=== PATIENT | male | born 1940 | race Caucasian/White ===

== ENCOUNTER 2017-02-06 13:12 | Inpatient (IN) | payer MEDICARE ==
[~2017-02-06] VITALS: Ht 175.2 cm; Wt 78.9 kg
--- NOTE | ~2017-02-06 | O ---
[place], [place] OPERATIVE NOTE NAME: ASHLEY BEAN UNIT #: [id number] ROOM: 410 DOCTOR: MIGUEL BLEVINS MD BIRTHDATE: [birth year] DOS: INDICATION: This is a 76-year-old patient who presented with chief complaint of anemia, blood in stool, status post transfusion. PROCEDURE: Today's procedure part of investigation is colonoscopy. PREMEDICATION: Versed and Diprivan. SCOPE: Olympus folding colonoscope 10L video. REPORT: After putting the patient in left lateral position and application of lubricant to rectal pouch and digital examination, the scope was encountering immediately with a dark black screen due to the presence of old blood and stool debris. As much as possible lavage was done under high pressure; however, detailed visualization absolutely impractical. We had to abort the procedure due to the ambiguity of anatomy secondary to retained stool and debris. The patient extubated, tolerated procedure well. IMPRESSION: Retained stool and nonvisualization of the colon. PLAN AND DISCUSSION: We are going to feed the patient, and if he has to be discharged, we can proceed with that order and outpatient colonoscopy with 2 days prep is going to be organized for him in future. MIGUEL BLEVINS MD CM:OPRECORD:OPERATIVE NOTE [id number] MIGUEL BLEVINS MD 02/09/17 1739 interface
--- NOTE | ~2017-02-06 | O ---
[place], [place] OPERATIVE NOTE NAME: [facility]AN [id number] UNIT #: [id number] ROOM: 415 DOCTOR: FELICITY SIMONMIGUEL BIRTHDATE: [birth year] DOS: 02/07/2017 HISTORY OF ILLNESS: The patient has presented with sudden drop in H and H, and concerned about acute internal bleed and his initial H and H was 7.2 and 21, it dropped to 5.8 and 17. I was asked for assessment of the patient. The patient's platelets also was 87, thrombocytopenic and the platelet count has essentially stayed the same neighborhood. Lactic acid was 3.3. His INR was 1.1. Comprehensive metabolic panel: BUN and creatinine 62 and 2.[address] scan of the head was no acute intracranial pathology, moderate atrophy of chronic small vessel disease noticed. Lactic acid remains about 3.3 continuously. His INR, the same comprehensive metabolic panel with slight improvement in BUN and creatinine to 50 and 1.7 was noticed. His troponin was negative. PAST MEDICAL HISTORY: Hyperlipidemia, hypertension, diabetes, chronic renal failure and hypertension. PAST SURGICAL HISTORY: Cardiac pacemaker, adenoidectomy, cardiac stent x 1, pacemaker, appendectomy and penile implant. SOCIAL HISTORY: Passive smoker. Nonalcohol consumer. FAMILY HISTORY: Noncontributory. ALLERGIES: No known. MEDICATION: Medication list has been reviewed. REVIEW OF SYSTEMS: HEENT: Denies double vision, blurred vision. RESPIRATORY: Denies shortness of breath. CARDIOVASCULAR: Denies chest pain. DIGESTIVE SYSTEM: Some nausea, no hematemesis, no hematochezia. PHYSICAL EXAMINATION: VITAL SIGNS: Stable. HEENT: Head normocephalic, nontraumatic. Mouth and buccal mucosa benign. NECK: Supple. No thyromegaly, no cervical lymphadenopathy. CHEST: Symmetric anatomy, equal expansion. No wheeze, no rhonchi. Decreased air entry in general. HEART: Normal sinus rhythm, no gallop, no murmur. ABDOMEN: Soft. No palpable organomegaly. Bowel sounds present. No pulsatile mass. EXTREMITIES: No cyanosis, no pedal edema. NEUROLOGICAL: Alert, oriented to time, place, person. IMPRESSION: Acute drop in hemoglobin and hematocrit, anemia, renal insufficiency, lactic acidosis, hypertension, hyperlipidemia and diabetes mellitus; all has been recognized. [place], [place] OPERATIVE NOTE NAME: ASHLEY BEAN UNIT #: [id number] ROOM: 415 DOCTOR: FELICITY SIMON,MIGUEL BIRTHDATE: [birth year] PLAN AND DISCUSSION: EGD and clinical reassessment. MIGUEL BLEVINS MD CM:OPRECORD:OPERATIVE NOTE [id number] MIGUEL BLEVINS MD 02/07/17 1305 interface
--- NOTE | ~2017-02-06 | O ---
[place], [place] OPERATIVE NOTE NAME: ASHLEY BEAN UNIT #: [id number] ROOM: 415 DOCTOR: FELICITY SIMON,MIGUEL BIRTHDATE: [birth year] DOS: HISTORY OF PRESENT ILLNESS: This is a 76-year-old patient who presented with sudden drop in H and H of 5 and 17 and there is concern of the source of the possible GI bleed, the source of blood loss. PROCEDURE: Today's procedure part of investigation is panendoscopy. PREMEDICATION: Versed and Diprivan. SCOPE: Olympus forward-viewing gastroscope Q10 video. OPERATIVE REPORT: After putting the patient in left lateral position and application of lubricant to the scope, the scope was introduced. Thereafter, under direct visualization, advanced through the length of esophagus without difficulty. No active GI bleed was noticed. Mild gastritis seen. Duodenal bulb, second and third part within normal limits. The patient extubated, tolerated procedure well. IMPRESSION: Mild gastritis, no active bleeding was noticed. No evidence of bleeding was noticed in upper GI tract. PLAN AND DISCUSSION: I am going to organize a CT scan of the abdomen. I am going to organize colonoscopy and workup in progress. MIGUEL BLEVINS MD CM:OPRECORD:OPERATIVE NOTE [id number] MIGUEL BLEVINS MD 02/07/17 1255 interface
[~2017-02-06 13:12] MED LIST: ALDACTONE25 MG PO; ASPIRIN CHILDRE81 MG PO; AVPAK PRIMIDONE50 M1 PO; B12100 MCG PO; CITALOPRAM HYDR20 MG PO; CITALOPRAM20 MG PO; COREG12.5 M1 PO; COREG25 MG PO; GABAPENTIN300 MG PO; HUMALOG PEN100 U/ML SC; LANOXIN0.125 MG PO; LANTUS100 U/ML SC; LASIX20 MG PO; LASIX40 MG PO; LEVAQUIN750 M1 PO; LIPITOR40 MG PO; MOBIC15 MG PO; NEURONTIN300 MG PO; OMEPRAZOLE D/R20 MG PO; OMEPRAZOLE20 M1 PO; OPANA ER30 M1 PO; OPANA ER40 MG PO; OXYGEN NAS; PLAVIX75 MG PO; Quinapril10 MG PO; ROXICODONE30 MG PO; ZESTRIL,PRINIVI20 MG PO
[2017-02-06 13:22] VITALS: BP 122/76
[2017-02-06 14:34] LABS: BASO # 0.1 10*3/uL (0.0-0.1); BASO % 0.4 % (0.0-1.0); EOS # 0.1 10*3/uL (0.0-0.4); EOS % 0.6 % (1.0-4.0); HEMATOCRIT 21.5 % (42.0-52.0); HEMOGLOBIN 7.2 g/dl (14.0-18.0); LYMPH # 2.1 10*3/uL (1.3-4.4); LYMPH % 15.3 % (27.0-41.0); MEAN CORPUSCULAR HGB 30.1 pg (27.0-31.0); MEAN CORPUSCULAR HGB CONC 33.5 g/dl (33.0-37.0); MEAN PLATELET VOLUME 11.1 fl (9.6-12.3); MONO # 0.8 10*3/uL (0.1-1.0); MONO % 5.6 % (3.0-9.0); NEUT # 10.8 10*3/uL (2.3-7.9); NEUT % 77.2 % (47.0-73.0); NUCLEATED RED BLOOD CELL 0.2 % (0.0-0.0); PLATELET COUNT AUTOMATED 97 10*3/uL (130-400); RED BLOOD COUNT 2.39 10*6/uL (4.50-5.90); RED CELL DISTRI WIDTH 13.8 % (0-14.5); WHITE BLOOD COUNT 13.9 10*3/uL (4.8-10.8)
[2017-02-06 14:43] LABS: ACT PARTIAL THROMBO TIME 22.4 SECONDS (20.8-31.5); INTERNATIONAL NORM RATIO 1.1 (2.0-3.5)
[2017-02-06 14:53] LABS: CREATININE 2.02 mg/dL (0.70-1.30); POTASSIUM 4.5 mmol/L (3.5-5.1); TOTAL PROTEIN 6.4 gm/dL (6.4-8.2); TROPONIN I 0.028 ng/ml (<0.045)
[2017-02-06 15:47] VITALS: BP 144/95
[2017-02-06] MEDS ORDERED: PERCOCET 5-3251 EACH PO (16:19)
[2017-02-06] MEDS ORDERED: ZOFRAN ODT4 MG SL (16:19)
[2017-02-06 17:20] VITALS: BP 124/76
[2017-02-06] MEDS ORDERED: ANECREAM515 GM T (18:30)
[2017-02-06 20:00] VITALS: BP 124/50
[2017-02-06 20:55] LABS: BILIRUBIN NEGATIVE (NEGATIVE); BLOOD NEGATIVE (NEGATIVE); CLARITY SL CLOUDY (CLEAR); COLOR YELLOW (YELLOW); GLUCOSE NEGATIVE (NEGATIVE); KETONE NEGATIVE (NEGATIVE); LEUKO ESTERASE NEGATIVE (NEGATIVE); NITRITE NEGATIVE (NEGATIVE); UROBILINOGEN 0.2 E.U./dl (0.2-1.0)
[2017-02-06 21:04] LABS: BACTERIA TRACE; RBC 0-2 rbc/hpf (0-2)
[2017-02-07] VITALS (16 sets, daily range): BP systolic 97–128; BP diastolic 56–90
[2017-02-07 07:23] LABS: NUCLEATED RED BLOOD CELL 0.2 % (0.0-0.0); PLATELET COUNT AUTOMATED 87 10*3/uL (130-400); RED BLOOD COUNT 1.87 10*6/uL (4.50-5.90); RED CELL DISTRI WIDTH 14.7 % (0-14.5); WHITE BLOOD COUNT 11.3 10*3/uL (4.8-10.8)
[2017-02-07 07:38] LABS: HEMATOCRIT 17.6 % (42.0-52.0); HEMOGLOBIN 5.8 g/dl (14.0-18.0); MEAN CELL VOLUME 94.1 fl (80.0-94.0)
[2017-02-07 07:52] LABS: ALBUMIN 2.8 gm/dl (3.1-4.5); CREATININE 1.71 mg/dL (0.70-1.30); PHOSPHOROUS 3.1 mg/dL (2.5-4.9); POTASSIUM 4.1 mmol/L (3.5-5.1); TOTAL PROTEIN 5.8 gm/dL (6.4-8.2)
[2017-02-07 07:56] LABS: INTERNATIONAL NORM RATIO 1.1 (2.0-3.5)
[2017-02-07 07:57] LABS: PLATELET SUFFICIENCY LOW (NORMAL); TOTAL CELLS COUNTED 100 #CELLS
[2017-02-07 07:58] LABS: MICROCYTOSIS SLIGHT; OVALOCYTES FEW; POLYCHROMASIA SLIGHT; THYROID STIM HORMONE (HS) 1.63 uIU/ml (0.358-4.75)
[2017-02-07 08:29] LABS: VITAMIN D, 25-HYDROXY 14.7 ng/mL (30-100)
[2017-02-07 19:45] LABS: BASO # 0.1 10*3/uL (0.0-0.1); BASO % 0.5 % (0.0-1.0); EOS # 0.3 10*3/uL (0.0-0.4); EOS % 2.3 % (1.0-4.0); LYMPH # 2.8 10*3/uL (1.3-4.4); LYMPH % 24.9 % (27.0-41.0); MEAN CELL VOLUME 91.5 fl (80.0-94.0); MEAN CORPUSCULAR HGB 30.4 pg (27.0-31.0); MEAN CORPUSCULAR HGB CONC 33.2 g/dl (33.0-37.0); MEAN PLATELET VOLUME 10.6 fl (9.6-12.3); MONO # 0.8 10*3/uL (0.1-1.0); MONO % 7.3 % (3.0-9.0); NEUT # 7.1 10*3/uL (2.3-7.9); NEUT % 64.2 % (47.0-73.0); NUCLEATED RED BLOOD CELL 0.4 % (0.0-0.0); PLATELET COUNT AUTOMATED 66 10*3/uL (130-400); RED CELL DISTRI WIDTH 14.8 % (0-14.5); WHITE BLOOD COUNT 11.1 10*3/uL (4.8-10.8)
[2017-02-07 19:48] LABS: HEMATOCRIT 23.8 % (42.0-52.0); HEMOGLOBIN 7.9 g/dl (14.0-18.0)
[2017-02-08] VITALS: BP 147/83
[2017-02-08 04:58] LABS: BASO % 0.4 % (0.0-1.0); EOS # 0.4 10*3/uL (0.0-0.4); EOS % 3.4 % (1.0-4.0); HEMATOCRIT 23.4 % (42.0-52.0); HEMOGLOBIN 7.8 g/dl (14.0-18.0); LYMPH # 2.3 10*3/uL (1.3-4.4); LYMPH % 22.5 % (27.0-41.0); MEAN CELL VOLUME 91.4 fl (80.0-94.0); MEAN CORPUSCULAR HGB 30.5 pg (27.0-31.0); MEAN CORPUSCULAR HGB CONC 33.3 g/dl (33.0-37.0); MEAN PLATELET VOLUME 10.4 fl (9.6-12.3); MONO # 0.9 10*3/uL (0.1-1.0); MONO % 8.3 % (3.0-9.0); NEUT # 6.7 10*3/uL (2.3-7.9); NEUT % 64.7 % (47.0-73.0); NUCLEATED RED BLOOD CELL 0.3 % (0.0-0.0); PLATELET COUNT AUTOMATED 57 10*3/uL (130-400); RED BLOOD COUNT 2.56 10*6/uL (4.50-5.90); RED CELL DISTRI WIDTH 15.4 % (0-14.5); WHITE BLOOD COUNT 10.3 10*3/uL (4.8-10.8)
[2017-02-08 05:28] LABS: CREATININE 1.56 mg/dL (0.70-1.30); POTASSIUM 3.8 mmol/L (3.5-5.1)
[2017-02-08 08:00] VITALS: BP 120/76
[2017-02-08 12:00] VITALS: BP 136/90
[2017-02-08 16:00] VITALS: BP 145/78
[2017-02-09] VITALS (8 sets, daily range): BP systolic 108–150; BP diastolic 57–82
[2017-02-09 07:12] LABS: HEMOGLOBIN 8.5 g/dl (14.0-18.0)
[2017-02-09 07:14] LABS: BASO % 0.2 % (0.0-1.0); EOS # 0.2 10*3/uL (0.0-0.4); EOS % 1.1 % (1.0-4.0); HEMATOCRIT 25.1 % (42.0-52.0); LYMPH # 2.3 10*3/uL (1.3-4.4); LYMPH % 17.3 % (27.0-41.0); MEAN CELL VOLUME 93.3 fl (80.0-94.0); MEAN CORPUSCULAR HGB 31.6 pg (27.0-31.0); MEAN CORPUSCULAR HGB CONC 33.9 g/dl (33.0-37.0); MEAN PLATELET VOLUME 11.1 fl (9.6-12.3); MONO # 1.1 10*3/uL (0.1-1.0); MONO % 8.3 % (3.0-9.0); NEUT # 9.6 10*3/uL (2.3-7.9); NEUT % 72.6 % (47.0-73.0); NUCLEATED RED BLOOD CELL 0.3 % (0.0-0.0); RED BLOOD COUNT 2.69 10*6/uL (4.50-5.90); RED CELL DISTRI WIDTH 16.2 % (0-14.5); WHITE BLOOD COUNT 13.2 10*3/uL (4.8-10.8)
[2017-02-09 07:16] LABS: PLATELET COUNT AUTOMATED 52 10*3/uL (130-400)
[2017-02-09 07:45] LABS: CREATININE 1.54 mg/dL (0.70-1.30); POTASSIUM 3.6 mmol/L (3.5-5.1)
[2017-02-10] VITALS: BP 119/65; BP 134/73
[2017-02-10 06:50] LABS: ALBUMIN 2.6 gm/dl (3.1-4.5); CREATININE 1.55 mg/dL (0.70-1.30); POTASSIUM 3.6 mmol/L (3.5-5.1)
[2017-02-10 07:11] LABS: HEMATOCRIT 24.6 % (42.0-52.0); HEMOGLOBIN 8.1 g/dl (14.0-18.0); MEAN CELL VOLUME 93.2 fl (80.0-94.0); MEAN CORPUSCULAR HGB 30.7 pg (27.0-31.0); MEAN CORPUSCULAR HGB CONC 32.9 g/dl (33.0-37.0); MEAN PLATELET VOLUME 11.3 fl (9.6-12.3); PLATELET COUNT AUTOMATED 51 10*3/uL (130-400); RED BLOOD COUNT 2.64 10*6/uL (4.50-5.90); RED CELL DISTRI WIDTH 16.1 % (0-14.5)
[2017-02-10 07:33] LABS: TOTAL CELLS COUNTED 100 #CELLS
[2017-02-10 07:34] LABS: PLATELET SUFFICIENCY LOW (NORMAL); POLYCHROMASIA SLIGHT
[2017-02-10 08:00] VITALS: BP 125/73
[2017-02-10] MEDS ORDERED: PREDNISONE10 MG PO ×2 (10:44→12:00)
[2017-02-10] MEDS ORDERED: LEVAQUIN750 M1 PO ×2 (10:44→12:00)
[2017-02-10] MEDS ORDERED: NEURONTIN300 MG PO (10:45)
[2017-02-10] MEDS ORDERED: ATORVASTATIN CA40 M1 PO (10:45)
[2017-02-10] MEDS ORDERED: TRICOR48 MG PO (10:45)
[2017-02-10 12:00] VITALS: BP 130/76
[2017-02-10 20:00] VITALS: BP 133/74
[2017-02-11] VITALS: BP 134/73
[2017-02-11 08:00] VITALS: BP 118/81
[2017-02-11 12:00] VITALS: BP 125/75
[2017-02-11 16:00] VITALS: BP 124/78
[2017-02-11 20:00] VITALS: BP 113/66
[2017-02-12] VITALS: BP 116/74
[2017-02-12 06:22] VITALS: BP 121/71
[2017-02-12 06:52] LABS: BASO % 0.3 % (0.0-1.0); EOS # 0.6 10*3/uL (0.0-0.4); EOS % 5.9 % (1.0-4.0); HEMATOCRIT 24.3 % (42.0-52.0); LYMPH # 1.7 10*3/uL (1.3-4.4); LYMPH % 16.1 % (27.0-41.0); MEAN CELL VOLUME 92.4 fl (80.0-94.0); MEAN CORPUSCULAR HGB 30.4 pg (27.0-31.0); MEAN CORPUSCULAR HGB CONC 32.9 g/dl (33.0-37.0); MEAN PLATELET VOLUME 11.1 fl (9.6-12.3); MONO # 0.8 10*3/uL (0.1-1.0); MONO % 7.4 % (3.0-9.0); NEUT # 7.3 10*3/uL (2.3-7.9); NEUT % 69.7 % (47.0-73.0); PLATELET COUNT AUTOMATED 59 10*3/uL (130-400); RED BLOOD COUNT 2.63 10*6/uL (4.50-5.90); WHITE BLOOD COUNT 10.5 10*3/uL (4.8-10.8)
[2017-02-12 07:26] LABS: ALBUMIN 2.4 gm/dl (3.1-4.5); CREATININE 1.57 mg/dL (0.70-1.30); PHOSPHOROUS 3.4 mg/dL (2.5-4.9); POTASSIUM 4.2 mmol/L (3.5-5.1); TOTAL PROTEIN 6.2 gm/dL (6.4-8.2)
[2017-02-12 08:00] VITALS: BP 116/70
[2017-02-12] MEDS ORDERED: ATORVASTATIN CA80 M1 PO (10:28)
[2017-02-12] MEDS ORDERED: CARVEDILOL3.125 MG PO (10:28)
[2017-02-12] MEDS ORDERED: ASPIRIN CHEWABL81 M1 PO (10:28)
[2017-02-12] MEDS ORDERED: LISINOPRIL2.5 MG PO (10:28)
[2017-02-12] MEDS ORDERED: Vitamin D PO (10:28)
[2017-02-12 12:00] VITALS: BP 122/70
== END 2017-02-12 17:23 | disposition home health service (06) | DRG 871 ==
LOC: ED 13:12 → EDHOLD 16:15 → 4E 16:15
PROVIDERS: Hospitalist; Internal Medicine; Physician Assistant; ADMIT Emergency Medicine
PROC: 0DJ08ZZ Inspection of Upper Intestinal Tract, Via Natural or Artificial Opening Endoscopic (ICD-10-PCS; principal; 2017-02-07)
PROC: 30233N1 Transfusion of Nonautologous Red Blood Cells into Peripheral Vein, Percutaneous Approach (ICD-10-PCS; principal; 2017-02-07)
PROC: 0DJD8ZZ Inspection of Lower Intestinal Tract, Via Natural or Artificial Opening Endoscopic (ICD-10-PCS; 2017-02-09)
DX: A41.9 Sepsis, unspecified organism (principal); J18.9 Pneumonia, unspecified organism; N17.0 Acute kidney failure with tubular necrosis; E44.0 Moderate protein-calorie malnutrition; E11.22 Type 2 diabetes mellitus with diabetic chronic kidney disease; E87.2 Acidosis; D69.6 Thrombocytopenia, unspecified; E11.42 Type 2 diabetes mellitus with diabetic polyneuropathy; D62 Acute posthemorrhagic anemia; I13.0 Hypertensive heart and chronic kidney disease with heart failure and stage 1 through stage 4 chronic kidney disease, or unspecified chronic kidney disease; I50.22 Chronic systolic (congestive) heart failure; I69.354 Hemiplegia and hemiparesis following cerebral infarction affecting left non-dominant side; N18.3 Chronic kidney disease, stage 3 (moderate); R65.20 Severe sepsis without septic shock; K21.9 Gastro-esophageal reflux disease without esophagitis; G89.29 Other chronic pain; E78.2 Mixed hyperlipidemia; E78.1 Pure hyperglyceridemia; E55.9 Vitamin D deficiency, unspecified; R29.6 Repeated falls; N28.1 Cyst of kidney, acquired; E11.69 Type 2 diabetes mellitus with other specified complication; K29.70 Gastritis, unspecified, without bleeding; I25.10 Atherosclerotic heart disease of native coronary artery without angina pectoris; E78.00 Pure hypercholesterolemia, unspecified; M54.9 Dorsalgia, unspecified; Z96.89 Presence of other specified functional implants; I08.1 Rheumatic disorders of both mitral and tricuspid valves; Z91.14 Patient's other noncompliance with medication regimen; Z79.4 Long term (current) use of insulin; Z95.5 Presence of coronary angioplasty implant and graft; I25.2 Old myocardial infarction; Z87.891 Personal history of nicotine dependence; Z90.49 Acquired absence of other specified parts of digestive tract; Z82.49 Family history of ischemic heart disease and other diseases of the circulatory system; Z83.3 Family history of diabetes mellitus; Z95.810 Presence of automatic (implantable) cardiac defibrillator; Z68.22 Body mass index [BMI] 22.0-22.9, adult